=== PATIENT | male | born 1970 | race Caucasian/White ===

== ENCOUNTER 2022-07-18 01:09 | Day surgery (SDC) | payer OTHER, SELFPAY ==
[2022-07-05 14:33] VITALS: BMI 27.7
[2022-07-18 11:02] VITALS: BP 126/89; PULSE 76; RESP 18; TEMP 36.1; O2SAT 97
[2022-07-18] MEDS: LACTATED RINGERS 1,000 ML 150 ML IV CONT (11:05)
--- NOTE | 2022-07-18 11:07 | SUR.PREOP ---
WRONG INFORMATION ENTERED AT 1045 BY JASBIR MONTGOMERY, ENTRIES UN-DONE AND CORRECT INFORMATION ENTERED BY JUAN MONTGOMERY.
--- NOTE | 2022-07-18 11:39 | WPDANESEPPF ---
Anes - Initial Pre Proc Eval Procedure: Operation Date: 07/18/22 14:00 Proposed Procedures p Screening Colonoscopy - Jeramie Bejarano MD Date/Time: 07/18/22 11:39 Surgeon: Jeramie Bejarano MD Pre Op Diagnosis: neoplasm screening Patient Data Age: 52 Gender: M Height: 1.85 m Weight: 94 kg Last Vital Signs Temp 36.1 C L 07/18/22 11:02 Pulse 76 07/18/22 11:02 Resp 18 07/18/22 11:02 BP 126/89 07/18/22 11:02 Pulse Ox 97 07/18/22 11:02 O2 Del Method Room Air 07/18/22 11:02 Allergies Allergy/AdvReac Type Severity Reaction Status Date / Time No Known Allergies Allergy Verified 07/18/22 11:00 Home Medications Medication Instructions Recorded Confirmed Type dextroamphetamine-amphetamine 10 10 mg PO DAILY #30 tabs 07/04/22 07/05/22 Rx mg tablet (Adderall) dextroamphetamine-amphetamine ER 25 mg PO DAILY #30 caps 07/04/22 07/05/22 Rx 25 mg 24hr capsule,extend release (Adderall XR) Patient hx anesthesia problems: none Family hx anesthesia problems: none Results Review: All pre-operative results and documents have been reviewed as part of the pre-operative evaluation. [facility] Past Medical History Medical History BMI 27.0-27.9,adult BMI 28.0-28.9,adult COVID-19 Screening for prostate cancer Family History Family History Father Hypertension Malignant neoplasm of prostate Diabetes mellitus Mother Family history of malignant melanoma Family history of type 2 diabetes mellitus Sibling No problems noted. Social History Social History Smoking status: Never smoker Second hand tobacco smoke exposure: No Alcohol intake: current Substance use: never Substance use type: does not use Living arrangements: with family Additional occupation/education comments: [employer] supervisor Gender identity (if verbalized by the patient): Male Spiritual care concerns: No Anes - Eval Final PreProcedure Day of Procedure 07/18/22 11:39 Patient weight: overweight Heart: regular rate and rhythm Lungs: clear to auscultation and normal air movement Airway: Mallampati scale class II Neurological: alert and oriented Last oral intake: >/= 8 hours ASA classification: II Emergent: no Anesthetic plan: proceed Anesthesia type and monitoring: general GIVS Results Review: All pre-operative results and documents have been reviewed as part of the pre-operative evaluation. Informed Consent: The patient's anesthetic plan and its attendant risks and benefits were discussed with the patient/family/POA. Questions were solicited and answers provided to the satisfaction of the patient/family/POA.
--- NOTE | 2022-07-18 12:02 | PM.HPGS ---
History of Present Illness History of Present Illness Consent: Risks, benefits, and alternatives have been discussed and questions answered. Patient agrees to proceed with procedure. Chief complaint: neoplasm screening Narrative: Tremayne Holloway is a 52 year old male here for first screening colonoscopy Review of Systems Constitutional: Constitutional: Denies headache(s) and Denies weakness Eyes: Eyes: Denies blurry vision ENT: Reports Normal hearing present, Denies headache(s) and Denies neck pain Cardiovascular: Cardiovascular: Denies chest pain and Denies dyspnea Respiratory: Respiratory: Denies dyspnea Gastrointestinal: Gastrointestinal: Reports no additional gastrointestinal complaints Genitourinary: Genitourinary: Denies dysuria Musculoskeletal: Musculoskeletal: Denies neck pain Integumentary/Breasts: Skin/Breast: Denies dry skin Neurologic: Reports Normal hearing present, Denies headache(s) and Denies weakness Psychiatric: Psychiatric: Denies anxiety Endocrine: Endocrine: Denies change in body appearance Hematologic/Lymphatic: Hematologic/Lymphatic: Denies easy bleeding Allergic/Immunologic: Allergic/Immunologic: Denies urticaria PMFSH Past Medical History Medical History BMI 27.0-27.9,adult BMI 28.0-28.9,adult COVID-19 Screening for prostate cancer Family History Family History Father Hypertension Malignant neoplasm of prostate Diabetes mellitus Mother Family history of malignant melanoma Family history of type 2 diabetes mellitus Sibling No problems noted. Social History Social History Smoking status: Never smoker Second hand tobacco smoke exposure: No Alcohol intake: current Substance use: never Substance use type: does not use Living arrangements: with family Additional occupation/education comments: [employer] supervisor Gender identity (if verbalized by the patient): Male Spiritual care concerns: No Meds Home Medications and Allergies Home Medications Medication Instructions Recorded Confirmed Type dextroamphetamine-amphetamine 10 10 mg PO DAILY #30 tabs 07/04/22 07/05/22 Rx mg tablet (Adderall) dextroamphetamine-amphetamine ER 25 mg PO DAILY #30 caps 07/04/22 07/05/22 Rx 25 mg 24hr capsule,extend release (Adderall XR) Allergies Allergy/AdvReac Type Severity Reaction Status Date / Time No Known Allergies Allergy Verified 07/18/22 11:00 Vital Signs Vital Signs - 24 hr 07/18/22 11:02 Temperature 97.0 F L Pulse Rate 76 Respiratory Rate 18 Blood Pressure 126/89 Pulse Oximetry 97 Oxygen Delivery Room Air Exam Const: General: comfortable and no acute distress HENMT: Face/Nose/Sinus: Normal nares present Eyes: General: appearance normal, both eyes and all related structures Neck: Neck: no JVD Resp: Auscultation: clear to auscultation bilaterally Cardio: Rate: regular rate Rhythm: regular rhythm GI: Inspection: non-distended GI Palp: Yes Soft to palpation Skin: General skin exam: normal color Neuro: General: gait normal Speech: normal speech Extrem: General: normal to inspection Psych: Mental Status: mental status grossly normal Assessment and Plan Assessment and plan (1) Screening for malignant neoplasm of colon: Code(s): Z12.11 - Encounter for screening for malignant neoplasm of colon Status: Acute Assessment and Plan: colonoscopy
[2022-07-18 12:23] VITALS: BP 127/86; PULSE 65; RESP 22; O2SAT 96
[2022-07-18 12:33] VITALS: BP 121/80; PULSE 66; RESP 17; O2SAT 97
[2022-07-18 12:43] VITALS: BP 123/88; PULSE 60; RESP 20; O2SAT 100
== END 2022-07-18 12:51 | disposition home or self-care (01) ==
PROVIDERS: PCP Family Medicine; Visit Provider Internal Medicine Gastroenterology
PROC: 0DJD8ZZ Inspection of Lower Intestinal Tract, Via Natural or Artificial Opening Endoscopic (ICD-10-PCS; CPT 45378; principal; 2022-07-18 14:00)
DX: Z12.11 Encounter for screening for malignant neoplasm of colon (principal); K64.8 Other hemorrhoids
CPT/HCPCS: 45378; J2704; J7120